=== PATIENT | male | born 1940 | race Caucasian/White ===

== ENCOUNTER 2017-02-07 08:00 | Outpatient (CLI) | payer MEDICARE, OTHER ==
[2017-02-07 14:55] LABS: EOSINOPHILS # (AUTO) 0.1 10^3/uL (0.0-0.7); MONOCYTES # (AUTO) 0.4 10^3/uL (0.0-1.0)
[2017-02-07 14:57] LABS: BASOPHILS % (AUTO) 0.4 %; EOSINOPHILS % (AUTO) 1.3 %; HCT - HEMATOCRIT 40.7 % (42.0-52.0); HGB - HEMOGLOBIN 14.2 g/dL (14.0-18.0); LYMPHOCYTES # (AUTO) 1.2 10^3/uL (1.5-3.5); MEAN CORPUSCULAR HEMOGLOBIN 32.1 pg (27.0-31.0); MEAN CORPUSCULAR HGB CONC 34.9 g/dL (32.0-36.0); MEAN CORPUSCULAR VOLUME 91.9 fL (80.0-94.0); NEUTROPHILS # (AUTO) 6.4 10^3/uL (1.5-6.6); NEUTROPHILS % (AUTO) 78.3 %; RED BLOOD COUNT 4.43 10^6/uL (4.70-6.10); RED CELL DISTRIBUTION WIDTH 13.4 % (12.0-15.0); UNCORRECTED WHITE BLOOD COUNT 8.1 x10^3/uL; WHITE BLOOD COUNT 8.1 x10^3/uL (4.8-10.8)
[2017-02-07 16:18] LABS: ALBUMIN/GLOBULIN RATIO 1.5 (1.0-2.2); BILIRUBIN,TOTAL 0.8 mg/dL (0.2-1.0); CALCIUM 8.5 mg/dL (8.5-10.3); CREATININE 1.4 mg/dL (0.6-1.2); POTASSIUM 3.8 mmol/L (3.5-5.0); TOTAL PROTEIN 6.2 g/dL (6.7-8.2)
[2017-02-07 16:31] LABS: HEMOGLOBIN A1C 0.59 g/dL
== END 2017-02-07 08:01 | disposition home or self-care (01) ==
LOC: LAB.WCP 08:00
PROVIDERS: ATTEND Family Medicine
DX: R73.01 Impaired fasting glucose (principal)
CPT/HCPCS: 36415; 80053; 83036; 85025

== ENCOUNTER 2017-10-02 11:27 | Emergency (ER) | payer MEDICARE, OTHER ==
[2017-10-02] MEDS ORDERED: LIDOCAINE 2% URO-JET 5 ML SYRINGE UR STA (12:36)
--- NOTE | 2017-10-02 12:54 | ED Physician Documentation ---
PD HPI MALE - Stated complaint Stated Complaint: MALE - Chief complaint Chief Complaint: Abd Pain - History obtained from History obtained from: Patient - History of Present Illness Timing - onset: Chronic Timing - duration: Days (1) Timing - details: Gradual onset Pain level max: 3 Pain level now: 3 Associated symptoms: Other (unable to urinate and unable to cath himself last night and this AM. there was blood after the self cath this am.) Similar symptoms before: Diagnosis (Patient has history of prostate cancer status post prostate seeding. Has had to self catheterize in the past.) Recently seen: Not recently seen - Additional information Additional information: States is normally able to urinate, but has needed catheters in the past. Tried to self cath and unable to cath himself today. Review of Systems Ten Systems: 10 systems reviewed and negative Constitutional: denies: Fever, Chills Cardiac: denies: Chest pain / pressure Respiratory: denies: Cough GI: denies: Vomiting, Diarrhea Skin: denies: Rash Musculoskeletal: denies: Neck pain, Back pain Neurologic: denies: Headache PD PAST MEDICAL HISTORY - Past Medical History Cardiovascular: Hypertension : Other Other Past Medical History: Prostate CA - Past Surgical History Past Surgical History: No - Present Medications Home Medications: Ambulatory Orders Medication Instructions Recorded Confirmed Carvedilol 25 mg PO DAILY 07/13/13 07/13/13 Lisinopril [Zestril] 10 mg PO DAILY 07/13/13 07/13/13 - Allergies Allergies/Adverse Reactions: Allergies Allergy/AdvReac Type Severity Reaction Status Date / Time No Known Drug Allergies Allergy Verified 10/02/17 11:49 - Social History Does the pt smoke?: No Smoking Status: Never smoker Does the pt drink ETOH?: No Does the pt have substance abuse?: No - Immunizations Immunizations are current?: Yes Immunizations: TDAP current <10years PD ED PE NORMAL - Vitals Vital signs reviewed: Yes - General General: Alert and oriented X 3, No acute distress - HEENT HEENT: Moist mucous membranes - Cardiac Cardiac: RRR - Respiratory Respiratory: No respiratory distress, Clear bilaterally - Abdomen Abdomen: Soft, Non tender, Non distended - Derm Derm: Warm and dry - Neuro Neuro: Alert and oriented X 3 - Psych Psych: Normal mood, Normal affect Results - Vitals Vitals: Vital Signs - 24 hr 10/02/17 10/02/17 11:47 13:00 Temperature 36.3 C L Heart Rate 89 85 Respiratory 20 18 Rate Blood Pressure 130/75 134/74 H O2 Saturation 99 96 Oxygen O2 Source Room air - Labs Labs: Laboratory Tests 10/02/17 10/02/17 14:15 14:15 WBC 12.8 H RBC 3.45 L Hgb 11.1 L Hct 31.3 L MCV 90.8 MCH 32.2 H MCHC 35.5 RDW 13.4 Plt Count 191 MPV 8.5 Neut # 10.6 H Lymph # 1.4 L [place] # 0.7 Eos # 0.0 Baso # 0.0 Absolute Nucleated RBC 0.00 Nucleated RBC % 0.0 Sodium 142 Potassium 3.3 L Chloride 109 Carbon Dioxide 20 L Anion Gap 13.0 BUN 28 H Creatinine 1.4 H Estimated GFR (MDRD) 49 L Glucose 129 H Calcium 8.9 PD MEDICAL DECISION MAKING - ED course Complexity details: reviewed results, re-evaluated patient, considered differential, d/w patient ED course: Unable to pass rivera, multiple attempts, likely false passage from his self cath attempts last night. Discussed with Dr. Woodruff ([email or web address]) and graciously accepts in transfer to the [facility] at [address] Wolf in the ED accepts at the same time. Patient will be transferred private auto with his . Over 1L of urine on bedside US of the bladder. Bladder is palpable just below the umbilicus. This document was made in part using voice recognition software. While efforts are made to proofread this document, sound alike and grammatical errors may occur. Departure - Departure Disposition: 02 Transfer Acute Care Hosp Clinical Impression: Urinary retention Condition: Stable Comments: Go directly to the [facility] ER now and see urology. I spoke with
[2017-10-02 13:41] VITALS: BP 134/74
[2017-10-02 14:28] LABS: BASOPHILS % (AUTO) 0.2 %; HGB - HEMOGLOBIN 11.1 g/dL (14.0-18.0); LYMPHOCYTES # (AUTO) 1.4 10^3/uL (1.5-3.5); LYMPHOCYTES % (AUTO) 11.2 %; MEAN CORPUSCULAR HEMOGLOBIN 32.2 pg (27.0-31.0); MEAN CORPUSCULAR HGB CONC 35.5 g/dL (32.0-36.0); MEAN CORPUSCULAR VOLUME 90.8 fL (80.0-94.0); MEAN PLATELET VOLUME 8.5 fL (7.4-11.4); MONOCYTES # (AUTO) 0.7 10^3/uL (0.0-1.0); MONOCYTES % (AUTO) 5.4 %; NEUTROPHILS # (AUTO) 10.6 10^3/uL (1.5-6.6); NEUTROPHILS % (AUTO) 83.2 %; PLT - PLATELET COUNT 191 10^3/uL (130-450); RED BLOOD COUNT 3.45 10^6/uL (4.70-6.10); RED CELL DISTRIBUTION WIDTH 13.4 % (12.0-15.0); WHITE BLOOD COUNT 12.8 x10^3/uL (4.8-10.8)
[2017-10-02 14:36] LABS: CALCIUM 8.9 mg/dL (8.5-10.3); CREATININE 1.4 mg/dL (0.6-1.2)
== END 2017-10-02 15:00 | disposition short-term general hospital (02) ==
LOC: ED 11:27
DX: R33.9 Retention of urine, unspecified (principal); I10 Essential (primary) hypertension; Z85.46 Personal history of malignant neoplasm of prostate
CPT/HCPCS: 36415; 51702; 51798; 80048; 85025; 99283; 99284

== ENCOUNTER 2018-02-28 08:00 | Outpatient (CLI) | payer MEDICARE, OTHER ==
[2018-02-28 12:43] LABS: BASOPHILS % (AUTO) 0.3 %; EOSINOPHILS # (AUTO) 0.1 10^3/uL (0.0-0.7); EOSINOPHILS % (AUTO) 1.1 %; HGB - HEMOGLOBIN 14.4 g/dL (14.0-18.0); LYMPHOCYTES # (AUTO) 1.3 10^3/uL (1.5-3.5); LYMPHOCYTES % (AUTO) 15.6 %; MEAN CORPUSCULAR HEMOGLOBIN 30.7 pg (27.0-31.0); MEAN CORPUSCULAR HGB CONC 34.1 g/dL (32.0-36.0); MEAN CORPUSCULAR VOLUME 90.2 fL (80.0-94.0); MEAN PLATELET VOLUME 9.3 fL (7.4-11.4); MONOCYTES # (AUTO) 0.3 10^3/uL (0.0-1.0); NEUTROPHILS # (AUTO) 6.4 10^3/uL (1.5-6.6); PLT - PLATELET COUNT 185 10^3/uL (130-450); RED CELL DISTRIBUTION WIDTH 14.9 % (12.0-15.0); WHITE BLOOD COUNT 8.1 x10^3/uL (4.8-10.8)
[2018-02-28 13:01] LABS: ALBUMIN 3.9 g/dL (3.2-5.5); ALBUMIN/GLOBULIN RATIO 1.6 (1.0-2.2); ALKALINE PHOSPHATASE 44 IU/L (42-121); ALT ALANINE AMINOTRANSFERASE 13 IU/L (10-60); AST ASPARTATE AMINOTRANSFERASE 16 IU/L (10-42); BUN - BLOOD UREA NITROGEN 25 mg/dL (6-20); CALCIUM 8.8 mg/dL (8.5-10.3); CARBON DIOXIDE - CO2 25 mmol/L (21-32); CHLORIDE 108 mmol/L (101-111); CHOL/HDL RATIO 3.7 (<5.0); CHOLESTEROL 143 mg/dL; CREATININE 1.3 mg/dL (0.6-1.2); GFR - MDRD 53 (>89); GLUCOSE 149 mg/dL (70-100); HDL CHOLESTEROL 39 mg/dL; LDL CHOLESTEROL,CALCULATED 95 mg/dL; LDL/HDL RATIO 2.4 (<3.6); SODIUM 141 mmol/L (135-145); TOTAL PROTEIN 6.3 g/dL (6.7-8.2); VLDL CHOLESTEROL 9 mg/dL
[2018-02-28 13:23] LABS: HB2 TOTAL 15.6 g/dL; HEMOGLOBIN A1C 0.63 g/dL; HEMOGLOBIN A1C % 5.8 % (4.6-6.2)
== END 2018-02-28 08:01 | disposition home or self-care (01) ==
LOC: LAB.WCP 08:00
PROVIDERS: ATTEND Family Medicine
DX: R73.01 Impaired fasting glucose (principal); I10 Essential (primary) hypertension; E78.9 Disorder of lipoprotein metabolism, unspecified; C61 Malignant neoplasm of prostate
CPT/HCPCS: 36415; 80053; 80061; 83036; 83721; 84153; 85025

== ENCOUNTER 2019-01-30 09:37 | Outpatient (CLI) | payer MEDICARE, OTHER | END 2019-01-30 09:38 | disposition home or self-care (01) | LOC: LAB.WCP 09:37 | PROVIDERS: ATTEND Urology | DX: C61 Malignant neoplasm of prostate (principal) | CPT/HCPCS: 36415; 84153 ==

== ENCOUNTER 2019-03-06 08:00 | Outpatient (CLI) | payer MEDICARE, OTHER ==
[2019-03-06 12:41] LABS: BASOPHILS % (AUTO) 0.3 %; EOSINOPHILS % (AUTO) 0.3 %; HGB - HEMOGLOBIN 12.5 g/dL (14.0-18.0); LYMPHOCYTES % (AUTO) 3.5 %; MEAN CORPUSCULAR HEMOGLOBIN 30.9 pg (27.0-31.0); MEAN CORPUSCULAR HGB CONC 32.6 g/dL (32.0-36.0); MEAN CORPUSCULAR VOLUME 94.8 fL (80.0-94.0); MEAN PLATELET VOLUME 11.9 fL (7.4-11.4); MONOCYTES % (AUTO) 5.9 %; NEUTROPHILS % (AUTO) 88.1 %; PLT - PLATELET COUNT 218 10^3/uL (130-450); RED BLOOD COUNT 4.05 10^6/uL (4.70-6.10); RED CELL DISTRIBUTION WIDTH 15.2 % (12.0-15.0); WHITE BLOOD COUNT 23.6 x10^3/uL (4.8-10.8)
[2019-03-06 13:07] LABS: ABNORMAL LYMPHS % (MANUAL) 0 %
[2019-03-06 13:21] LABS: HB2 TOTAL 13.3 g/dL; HEMOGLOBIN A1C 0.79 g/dL; HEMOGLOBIN A1C % 7.6 % (4.6-6.2)
[2019-03-06 13:23] LABS: BAND NEUTROPHILS % (MANUAL) 6 %; EOSINOPHILS # (MANUAL) 0.2 10^3/uL (0-0.7); LYMPHOCYTES # (MANUAL) 0.7 10^3/uL (1.5-3.5); LYMPHOCYTES % (MANUAL) 3 %; MONOCYTES # (MANUAL) 2.1 10^3/uL (0.0-1.0)
[2019-03-06 13:26] LABS: ALBUMIN 2.8 g/dL (3.2-5.5); ALBUMIN/GLOBULIN RATIO 0.8 (1.0-2.2); ALKALINE PHOSPHATASE 320 IU/L (42-121); ALT ALANINE AMINOTRANSFERASE 48 IU/L (10-60); AST ASPARTATE AMINOTRANSFERASE 52 IU/L (10-42); BILIRUBIN,TOTAL 1.1 mg/dL (0.2-1.0); BUN - BLOOD UREA NITROGEN 67 mg/dL (6-20); CALCIUM 9.4 mg/dL (8.5-10.3); CARBON DIOXIDE - CO2 23 mmol/L (21-32); CHLORIDE 103 mmol/L (101-111); CHOL/HDL RATIO 4.1 (<5.0); CHOLESTEROL 107 mg/dL; CREATININE 1.3 mg/dL (0.6-1.2); GFR - MDRD 53 (>89); GLUCOSE 224 mg/dL (70-100); HDL CHOLESTEROL 26 mg/dL; LDL CHOLESTEROL,CALCULATED 67 mg/dL; LDL/HDL RATIO 2.6 (<3.6); PLATELET ESTIMATE, MANUAL NORMAL (130-450,000) (NORMAL); PLATELET MORPHOLOGY NORMAL APPEARANCE (NORMAL); RBC MORPHOLOGY (MULTIPLE) NORMAL APPEARANCE (NORMAL); SODIUM 140 mmol/L (135-145); TOTAL PROTEIN 6.3 g/dL (6.7-8.2); VLDL CHOLESTEROL 14 mg/dL
[2019-03-06 13:27] LABS: DIFFERENTIAL COMMENT MANUAL DIFFERENTIAL
== END 2019-03-06 08:01 | disposition home or self-care (01) ==
LOC: LAB.WCP 08:00
PROVIDERS: ATTEND Family Medicine
DX: I12.9 Hypertensive chronic kidney disease with stage 1 through stage 4 chronic kidney disease, or unspecified chronic kidney disease (principal); N18.3 Chronic kidney disease, stage 3 (moderate); E78.5 Hyperlipidemia, unspecified; R73.01 Impaired fasting glucose
CPT/HCPCS: 36415; 80053; 80061; 83036; 83721; 84443; 85025

== ENCOUNTER 2019-03-08 11:08 | Outpatient (CLI) | payer MEDICARE, OTHER ==
[2019-03-08] MEDS ORDERED: IOVERSOL 320 100 ML VIAL IVP ONE ×2 (11:37→15:09)
[2019-03-08] MEDS ORDERED: IOVERSOL 320 50 ML VIAL ONE (11:37)
[2019-03-08] MEDS ORDERED: IOVERSOL 320 50 ML VIAL PO ONE (15:09)
--- NOTE | 2019-03-08 22:34 | CT Report ---
Reason: LIVER MASS, WEIGHT LOSS Procedure Date: 03/08/2019 Accession Number: [id number] / [id number] Procedure: CT - Abdomen/Pelvis W CPT Code: FULL RESULT: EXAM: CT ABDOMEN AND PELVIS EXAM DATE: 03/08/2019 12:52 PM. CLINICAL HISTORY: Liver mass, weight loss. COMPARISONS: CT abdomen and pelvis 05/30/2006. TECHNIQUE: Routine helical CT imaging was performed through the abdomen and pelvis. IV contrast: 100 cc Optiray 320. Enteric contrast: Yes. Reconstructions: Coronal and sagittal. In accordance with CT protocol optimization, one or more of the following dose reduction techniques were utilized for this exam: automated exposure control, adjustment of mA and/or KV based on patient size, or use of iterative reconstructive technique. FINDINGS: Lung Bases: Interval multiple bibasilar pulmonary nodules/masses, with largest lesion on the left is subpleural posterior basilar left lower lobe 4 x 2.4 cm and on the right is subpleural posterior basilar right lower lobe 3.4 x 1.8 cm. Trace left pleural effusion. Small pericardial effusion. Liver: Enlarged with right lobe 24 cm in height. Innumerable hypodense liver masses involve all segments, including a segment 8/4 lesion measuring 12.5 x 8.5 cm (21/3). Grossly patent portal and hepatic veins. Gallbladder/Bile Ducts: Moderately contracted gallbladder. No calcified gallstones or dilated bile ducts. Spleen: Mildly enlarged 14.7 cm in craniocaudal length without suspicious lesion. A tiny hypodensity posterior inferiorly. Pancreas: Unremarkable. Adrenal Glands: Interval 1.9 x 1.2 cm right adrenal nodule (25). Smaller nodular thickening right adrenal apex. Kidneys: No hydronephrosis. Left parapelvic renal cysts and small right lower pole cortical cyst. No mass or abnormal parenchymal enhancement. Peritoneal Cavity/Bowel: He enlarged left hepatic lobe exerts mass-effect on the stomach. There is bulky irregular masslike thickening of the upper/mid rectum up to 7.1 cm in transverse diameter. Medial rectal adenopathy up to 1.3 cm short axis (73). Small intraperitoneal free fluid around the liver, spleen, and in the pelvis without enhancing margins. No free or abscess. No mesenteric adenopathy by CT size criteria. Normal appendix. Retroperitoneum: No mass or adenopathy. Pelvic Organs: Spencer catheter in the contracted thick-walled bladder. Brachytherapy implants in the prostate. Small fat-containing left inguinal hernia. Vasculature: No aneurysms or significant abnormality. Bones: Degenerative changes of the spine. No aggressive bone destructive process or obviously suspicious blastic lesion. IMPRESSION: 1. Bulky rectal mass with mesorectal adenopathy, consistent with large rectal malignancy. No upstream intestinal dilatation to suggest hortensia obstruction. 2. Extensive liver metastases. Hepatosplenomegaly. 3. Numerous bilateral pulmonary metastases. Trace left pleural effusion and nonspecific small pericardial effusion. 4. Suspicion of small right adrenal metastasis. 5. Modest ascites. 6. Spencer catheter in the contracted thick-walled bladder. 7. Brachytherapy implants in the prostate. RADIA
== END 2019-03-08 11:09 | disposition home or self-care (01) ==
LOC: DI 11:08
PROVIDERS: ATTEND Family Medicine
DX: C78.7 Secondary malignant neoplasm of liver and intrahepatic bile duct (principal); K62.9 Disease of anus and rectum, unspecified; R59.0 Localized enlarged lymph nodes; C78.02 Secondary malignant neoplasm of left lung; C78.01 Secondary malignant neoplasm of right lung; R18.8 Other ascites; J90 Pleural effusion, not elsewhere classified; I31.3 Pericardial effusion (noninflammatory)
CPT/HCPCS: 74177; Q9967

== ENCOUNTER 2019-03-13 11:11 | Emergency (ER) | payer MEDICARE, OTHER ==
[2019-03-13] MEDS ORDERED: LACTATED RINGERS 1,000 ML IV STA ×2 (11:25→11:51)
[2019-03-13 11:41] LABS: BASOPHILS % (AUTO) 0.2 %; EOSINOPHILS % (AUTO) 0.1 %; HGB - HEMOGLOBIN 13.1 g/dL (14.0-18.0); MEAN CORPUSCULAR HEMOGLOBIN 29.3 pg (27.0-31.0); MEAN CORPUSCULAR HGB CONC 31.3 g/dL (32.0-36.0); MEAN CORPUSCULAR VOLUME 93.7 fL (80.0-94.0); MEAN PLATELET VOLUME 11.6 fL (7.4-11.4); MONOCYTES % (AUTO) 5.6 %; NEUTROPHILS % (AUTO) 89.3 %; PLT - PLATELET COUNT 242 10^3/uL (130-450); RED BLOOD COUNT 4.47 10^6/uL (4.70-6.10); RED CELL DISTRIBUTION WIDTH 15.9 % (12.0-15.0); WHITE BLOOD COUNT 25.1 x10^3/uL (4.8-10.8)
[2019-03-13 11:43] LABS: ABNORMAL LYMPHS % (MANUAL) 0 %
[2019-03-13 11:50] LABS: ALBUMIN 3.1 g/dL (3.2-5.5); ALBUMIN/GLOBULIN RATIO 0.8 (1.0-2.2); BILIRUBIN,TOTAL 1.6 mg/dL (0.2-1.0); CALCIUM 9.2 mg/dL (8.5-10.3)
[2019-03-13 12:19] LABS: BAND NEUTROPHILS % (MANUAL) 4 %; LYMPHOCYTES % (MANUAL) 1 %; MONOCYTES # (MANUAL) 1.5 10^3/uL (0.0-1.0)
[2019-03-13 12:20] LABS: DIFFERENTIAL COMMENT MANUAL DIFFERENTIAL; RBC MORPHOLOGY (MULTIPLE) 2+ ANISOCYTOSIS (NORMAL)
--- NOTE | 2019-03-13 12:22 | ED Physician Documentation ---
History of Present Illness - Stated complaint Stated Complaint: LOW BP - Chief complaint Chief Complaint: Neuro - History obtained from History obtained from: Patient, Family - History of Present Illness Timing: How many weeks ago Pain level max: 0 Pain level now: 0 - Additonal information Additional information: 78-year-old male with metastatic rectal cancer. He noted low blood pressure today when he was having a catheter changed and the nurse sent him here for evaluation. He does feel dizzy with standing. Received IV fluids in the [facility] yesterday. Does not eat and drink well. Patient and have decided to be hospice at this time, he is not yet on hospice however. Better with IV fluids. Worse with standing. Review of Systems Ten Systems: 10 systems reviewed and negative Constitutional: denies: Fever, Chills Cardiac: denies: Chest pain / pressure Respiratory: denies: Cough GI: denies: Vomiting, Diarrhea Skin: denies: Rash Musculoskeletal: denies: Neck pain, Back pain Neurologic: denies: Headache PD PAST MEDICAL HISTORY - Past Medical History Cardiovascular: Hypertension Respiratory: None Neuro: None Endocrine/Autoimmune: None GI: None : Other Psych: None Musculoskeletal: None Derm: None - Past Surgical History Past Surgical History: No - Present Medications Home Medications: Ambulatory Orders Medication Instructions Recorded Confirmed Lisinopril [Zestril] 10 mg PO DAILY 07/13/13 03/12/19 - Allergies Allergies/Adverse Reactions: Allergies Allergy/AdvReac Type Severity Reaction Status Date / Time No Known Drug Allergies Allergy Verified 03/12/19 15:59 - Social History Does the pt smoke?: No Smoking Status: Never smoker Does the pt drink ETOH?: No Does the pt have substance abuse?: No - Immunizations Immunizations are current?: Yes Immunizations: TDAP current <10years PD ED PE NORMAL - Vitals Vital signs reviewed: Yes - General General: Alert and oriented X 3, No acute distress - HEENT HEENT: Other (Dry lips and tongue) - Neck Neck: Supple, no meningeal sign - Cardiac Cardiac: RRR - Respiratory Respiratory: No respiratory distress, Clear bilaterally - Abdomen Abdomen: Soft, Non tender - Derm Derm: Warm and dry - Neuro Neuro: Alert and oriented X 3 Results - Vitals Vitals: Vital Signs - 24 hr 03/13/19 03/13/19 03/13/19 11:18 11:31 12:11 Temperature 36.7 C Heart Rate 98 92 80 Respiratory 16 22 19 Rate Blood Pressure 65/37 L 88/58 L 92/58 L O2 Saturation 99 97 99 03/13/19 13:35 Temperature Heart Rate 68 Respiratory 19 Rate Blood Pressure 108/68 O2 Saturation 99 Oxygen O2 Source Room air - Labs Labs: Laboratory Tests 03/13/19 03/13/19 11:29 11:29 WBC 25.1 H RBC 4.47 L Hgb 13.1 L Hct 41.9 L MCV 93.7 MCH 29.3 MCHC 31.3 L RDW 15.9 H Plt Count 242 MPV 11.6 H Neut # (Auto) Not Reportable Lymph # (Auto) Not Reportable [place] # (Auto) Not Reportable Eos # (Auto) Not Reportable Baso # (Auto) Not Reportable Absolute Nucleated RBC Not Reportable Total Counted 100 Band Neuts % (Manual) 4 Reactive Lymphs % (Man) 3 Abnorm Lymph % (Manual) 0 Nucleated RBC % Not Reportable Neutrophils # (Manual) 22.6 H Lymphocytes # (Manual) 1.0 L Monocytes # (Manual) 1.5 H Eosinophils # (Manual) 0.0 Basophils # (Manual) 0.0 Differential Comment MANUAL DIFFERENTIAL RBC Morph Micro Appear 2+ ANISOCYTOSIS Sodium 137 Potassium 4.7 Chloride 98 L Carbon Dioxide 22 Anion Gap 17.0 H BUN 80 H* Creatinine 2.0 H Estimated GFR (MDRD) 32 L Glucose 212 H Calcium 9.2 Total Bilirubin 1.6 H AST 53 H ALT 50 Alkaline Phosphatase 367 H Total Protein 7.0 Albumin 3.1 L Globulin 3.9 Albumin/Globulin Ratio 0.8 L Lipase 47 PD MEDICAL DECISION MAKING - ED course Complexity details: reviewed results, re-evaluated patient, considered differential, d/w patient, d/w family ED course: 78-year-old male who is transitioning to hospice for his metastatic cancer. Feels better after 2 L of IV fluid and blood pressure improved. They do not want any further care at this time. Discussed the case with Dr. Pat who will follow up with his primary care provider for a hospice referral. Patient and family counseled regarding signs and symptoms for which I believe and urgent re-evaluation would be necessary. Patient with good understanding of and agreement to plan and is comfortable going home at this time This document was made in part using voice recognition software. While efforts are made to proofread this document, sound alike and grammatical errors may occ ur. Patient is drinking leslee charles here. Departure - Departure Disposition: 01 Home, Self Care Clinical Impression: Dehydration, Uremia Condition: Good Instructions: ED Dehydration Follow-Up: Fausto Upton MD [Primary Care Provider] - Within 3 Days Comments: I spoke with Dr. Pat from hospice today, he will follow-up with Dr. Utpon for referral. They should contact you today or tomorrow. Discharge Date/Time: 03/13/19 13:35
[2019-03-13 13:39] VITALS: BP 108/68
== END 2019-03-13 13:35 | disposition home or self-care (01) ==
LOC: ED 11:11
DX: E86.0 Dehydration (principal); N19 Unspecified kidney failure; C20 Malignant neoplasm of rectum; C79.9 Secondary malignant neoplasm of unspecified site; I10 Essential (primary) hypertension
CPT/HCPCS: 36415; 80053; 83690; 85025; 96360; 96361; 99283; 99284; J7120